=== PATIENT | female | born 1970 | race Caucasian/White ===

== ENCOUNTER → 2016-10-21 | Outpatient (CLI) | payer OTHER ==
--- NOTE | 2016-10-21 10:31 | MM ---
Reason for exam: clinical finding. Last mammogram was performed 1 year and 8 months ago. History: Family history of breast cancer in maternal cousin and breast cancer in maternal aunt. Took progesterone for 6 months beginning at age 29. Physical Findings: Nurse did not find any significant physical abnormalities on exam. MG Diagnostic Mammo w CAD YURI Bilateral CC and MLO view(s) were taken. Prior study comparison: February 20, 2015, bilateral MG 3d diag mammo w/cad YURI. October 05, 2013, bilateral MG work up mamm w CAD BILAT. Finding: There is a 3.3 mm equal density (isodense) mass in the lateral right breast. New finding since February 20, 2015 and October 05, 2013. ASSESSMENT: Incomplete: need additional imaging evaluation, BI-RAD 0 RECOMMENDATION: Ultrasound of the right breast. (7-10 o'clock, 5cm from the nipple)
--- NOTE | 2016-10-21 10:43 | USB ---
Reason for exam: additional evaluation requested from abnormal screening. History: Family history of breast cancer in maternal cousin and breast cancer in maternal aunt. Took progesterone for 6 months beginning at age 29. US Breast Limited RT Right breast ultrasound demonstrates a 0.8 x 0.4 x 0.6cm oval, cystic cluster at 7 o'clock and a 0.5 x 0.3 x 0.5cm oval, solid node at 9 o'clock. These results were verbally communicated with the patient and result sheet given to the patient on 10/21/16. ASSESSMENT: Probably benign, BI-RAD 3 RECOMMENDATION: Follow-up diagnostic mammogram of the right breast in 6 months.
== END ==
LOC: RADMAMWWP 07:04
PROVIDERS: ATTEND Family Medicine
DX: N64.52 Nipple discharge (principal); R92.8 Other abnormal and inconclusive findings on diagnostic imaging of breast
CPT/HCPCS: 76642; G0204

== ENCOUNTER → 2017-01-14 | Outpatient (CLI) | payer OTHER ==
--- NOTE | 2017-01-14 10:48 | FL ---
EXAMINATION TYPE: FL UGI air w esophagus DATE OF EXAM: 01/14/2017 COMPARISON: NONE HISTORY: 46-year-old female dysphasia, difficulty swallowing and complains of goiter. Total fluoroscopy time: 1 minute 30 seconds. Total images: 35. FINDINGS: The swallowing mechanism is normal and hypopharyngeal anatomy is preserved. The cervical and thoracic portions have a normal course and caliber and normal motility. The mucosa is normal and no persistent filling defect is encountered. There is a small sliding hiatal hernia demonstrated. Both Valsalva and positional maneuvers failed to elicit gastroesophageal reflux. The stomach and duodenum are free of any persistent filling defect and demonstrate a normal mucosal p attern. IMPRESSION: 1. Small sliding hiatal hernia. 2. Otherwise, unremarkable esophagram and upper GI examination.
== END | disposition home or self-care (01) ==
LOC: RADFLWHC 08:45
PROVIDERS: ATTEND Family Medicine
DX: K44.9 Diaphragmatic hernia without obstruction or gangrene (principal); R13.10 Dysphagia, unspecified
CPT/HCPCS: 74246

== ENCOUNTER → 2017-04-24 | Outpatient (CLI) | payer OTHER ==
--- NOTE | 2017-04-24 11:47 | MM ---
Reason for exam: follow-up at short interval from prior study. Last mammogram was performed 6 months ago. History: Family history of breast cancer in maternal cousin and breast cancer in maternal aunt. Took progesterone for 6 months beginning at age 29. Physical Findings: Nurse Summary: There is a 1 x 1 area of prominent tissue at 9 o'clock in the right breast (nurse ts). MG 3D Diag Mammo W/Cad RT CC and MLO view(s) were taken of the right breast. Prior study comparison: October 21, 2016, bilateral MG diagnostic mammo w CAD YURI. September 22, 2013, bilateral MG screening mammo w CAD. The breast tissue is heterogeneously dense. This may lower the sensitivity of mammography. No significant new findings when compared with previous films. These results were verbally communicated with the patient and result sheet given to the patient on 04/24/17. ASSESSMENT: Benign, BI-RAD 2 RECOMMENDATION: Routine screening mammogram of both breasts in 6 months. Back on schedule, October 2017.
== END | disposition home or self-care (01) ==
LOC: RADMAMWWP 10:27
PROVIDERS: ATTEND Family Medicine
DX: R92.8 Other abnormal and inconclusive findings on diagnostic imaging of breast (principal)
CPT/HCPCS: 77065; G0279

== ENCOUNTER → 2018-03-22 | Outpatient (CLI) | payer MEDICAID ==
--- NOTE | 2018-03-23 10:39 | MM ---
Reason for exam: screening (asymptomatic). Last mammogram was performed 11 months ago. History: Family history of breast cancer in maternal cousin and breast cancer in maternal aunt. Took progesterone for 6 months beginning at age 29. Physical Findings: A clinical breast exam by your physician is recommended on an annual basis and results should be correlated with mammographic findings. MG 3D Screening Mammo W/Cad Bilateral CC and MLO view(s) were taken. XCCL view(s) were taken of the left breast. Prior study comparison: April 24, 2017, right breast MG 3d diag mammo w/cad RT. October 21, 2016, bilateral MG diagnostic mammo w CAD YURI. The breast tissue is heterogeneously dense. This may lower the sensitivity of mammography. There is a oval, circumscribed, stable right upper outer quadrant mass back to 2013. No suspicious abnormality. No significant changes when compared with prior studies. ASSESSMENT: Benign, BI-RAD 2 RECOMMENDATION: Routine screening mammogram of both breasts in 1 year.
== END | disposition home or self-care (01) ==
LOC: RADMAMWWP 11:52
PROVIDERS: ATTEND Internal Medicine Geriatric Medicine
DX: Z12.31 Encounter for screening mammogram for malignant neoplasm of breast (principal)
CPT/HCPCS: 77063; 77067

== ENCOUNTER 2019-02-16 12:21 | Emergency (ER) | payer MEDICAID, OTHER ==
[2019-02-16 12:38] VITALS: BP 107/71; PULSE 73; RESP 18; TEMP 98.4
--- NOTE | 2019-02-16 13:44 | ED ---
Recheck HPI - General Chief Complaint: Needlestick/Exposure Stated Complaint: Needle stick-[facility] Time Seen by Provider: 02/16/19 12:47 Source: patient Mode of arrival: ambulatory Limitations: no limitations - History of Present Illness Initial Comments: Patient is a 48-year-old female presenting with a needlestick injury that happened just prior to arrival. 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 Patient states she's squeezed her pinky and a little bit of blood came out to she decided coming to the ER. Patient was able to get blood from the source of the needle stick. Patient has no other pertinent past medical history. Patient has no other complaints at this time. Upon arrival to ER, vital signs are stable. - Related Data Allergies Allergy/AdvReac Type Severity Reaction Status Date / Time No Known Allergies Allergy Verified 02/16/19 12:38 Review of Systems ROS Statement: Those systems with pertinent positive or pertinent negative responses have been documented in the HPI. ROS Other: All systems not noted in ROS Statement are negative. Past Medical History Past Medical History: No Reported History History of Any Multi-Drug Resistant Organisms: None Reported Past Surgical History: Section Past Psychological History: No Psychological Hx Reported Smoking Status: Never smoker Past Alcohol Use History: Rare Past Drug Use History: None Reported General Exam - General Exam Comments Initial Comments: GENERAL: Well-appearing, well-nourished and in no acute distress. HEAD: Atraumatic, normocephalic. EYES: Pupils equal round and reactive to light, extraocular movements intact, sclera anicteric, conjunctiva are normal. ENT: Moist mucous membranes. NECK: Normal range of motion, supple without lymphadenopathy or JVD. LUNGS: Breath sounds clear to auscultation bilaterally and equal. No wheezes rales or rhonchi. HEART: Regular rate and rhythm without murmurs, rubs or gallops. EXTREMITIES: Normal range of motion, no pitting or edema. No clubbing or cyanosis. NEUROLOGICAL: Cranial nerves II through XII grossly intact. Normal speech, normal gait. PSYCH: Normal mood, normal affect. SKIN: Warm, Dry, normal turgor, no rashes. Patient has a very superficial abrasion of the skin of the left palmar aspect of the left pinky finger. No active bleeding at this time. Limitations: no limitations Course Vital Signs 02/16/19 12:34 Temperature 98.4 F Pulse Rate 73 Respiratory 18 Rate Blood Pressure 107/71 O2 Sat by Pulse 100 Oximetry Medical Decision Making - Medical Decision Making Patient is a 48-year-old female here for needlestick injury to her left pinky finger. The source was identified and a rapid HIV testing is negative at this time. Patient declines HIV prophylactic treatment at this time. Patient's blood was drawn today. Patient is stable for discharge at this time. Patient will follow up with her PCP. Case discussed with Dr. Dooley. Disposition Clinical Impression: Needle stick injury of finger of left hand Disposition: HOME SELF-CARE Condition: Stable Instructions (If sedation given, give patient instructions): Needle Stick Injuries (ED) Additional Instructions: Please return to the Emergency Department if symptoms worsen or any other concerns. Is patient prescribed a controlled substance at d/c from ED?: No Referrals: Karlo Hernandez MD [Primary Care Provider] - 1-2 days
[2019-02-16 19:38] LABS: Hepatitis B Surface AB- Quant 35.6 mIU/mL; Hepatitis B Surface Antibody Reactive (Non-Reactive); Hepatitis C IgG Antibody Non-Reactive (Non-Reactive)
[2019-02-16 20:07] LABS: HIV 1 AB Non-Reactive (Non-Reactive); HIV 2 AB Non-Reactive (Non-Reactive); HIV AB P24 Non-Reactive (Non-Reactive); HIV P24 AG Non-Reactive (Non-Reactive)
== END 2019-02-16 13:53 | disposition home or self-care (01) ==
LOC: EC 12:21
DX: S60.417A Abrasion of left little finger, initial encounter (principal); Z77.21 Contact with and (suspected) exposure to potentially hazardous body fluids; W46.1XXA Contact with contaminated hypodermic needle, initial encounter; Y93.89 Activity, other specified; Y92.129 Unspecified place in nursing home as the place of occurrence of the external cause; Y99.0 Civilian activity done for income or pay
CPT/HCPCS: 36415; 86706; 86803; 87390; 99283

== ENCOUNTER → 2020-05-15 | Outpatient (CLI) | payer OTHER ==
--- NOTE | 2020-05-15 15:51 | XR ---
EXAMINATION TYPE: XR forearm RT, XR wrist complete RT DATE OF EXAM: 05/15/2020 CLINICAL HISTORY: Fall injury with pain. TECHNIQUE: Two views of the right forearm are obtained. 4 views right wrist. COMPARISON: None. FINDINGS: There is no acute fracture or dislocation seen in the right radius or ulna. The right elbow joint appears within normal limits. The overlying soft tissue appears within normal limits. Images of right breast show no acute fracture or dislocation. The carpal joint spaces are maintained. Overlying soft tissues are unremarkable. IMPRESSION: There is no acute fracture or dislocation seen in the right forearm or wrist.
--- NOTE | 2020-05-15 15:52 | XR ---
EXAMINATION TYPE: XR knee complete LT DATE OF EXAM: 05/15/2020 CLINICAL HISTORY: Fall injury with pain. TECHNIQUE: Three views of the left knee are obtained. COMPARISON: None. FINDINGS: There is no acute fracture/dislocation evident in left knee. Mild to moderate tricompartme nt joint space loss greatest medial tibiofemoral compartment. No significant spurring. The overlying soft tissue appears unremarkable. IMPRESSION: There is no acute fracture or dislocation in the left knee.
--- NOTE | 2020-05-15 15:53 | XR ---
Cervical spine HISTORY: Trauma and pain 5 views of the cervical spine Loss of normal cervical lordosis could be due to muscle spasm. Cervical vertebral bodies show preserv ed height, alignment, and bone mineralization. Disc spaces and prevertebral soft tissues are normal. There are facet arthropathy changes. No significant foraminal encroachment. IMPRESSION: No acute fracture or subluxation.
--- NOTE | 2020-05-15 15:53 | XR ---
EXAMINATION TYPE: XR lumbar spine 2 or 3V DATE OF EXAM: 05/15/2020 CLINICAL HISTORY: Fall injury with pain. TECHNIQUE: Frontal and lateral images of the lumbar spine are obtained. COMPARISON: None FINDINGS: There are 5 lumbar type vertebral bodies identified. There is slight grade 1 anterolisthes is L5 on S1. Mild to moderate disc space narrowing at this level. Vertebral body heights are maintain ed. No acute fracture is seen. Facet arthropathy lower lumbar spine noted. Overlying soft tissue unre markable. IMPRESSION: As above.
== END | disposition home or self-care (01) ==
LOC: RADXRMAIN 15:05
PROVIDERS: ATTEND Emergency Medicine
DX: M48.07 Spinal stenosis, lumbosacral region (principal); M43.17 Spondylolisthesis, lumbosacral region; M47.816 Spondylosis without myelopathy or radiculopathy, lumbar region; S13.4XXA Sprain of ligaments of cervical spine, initial encounter; S50.10XA Contusion of unspecified forearm, initial encounter; S63.501A Unspecified sprain of right wrist, initial encounter; S80.02XA Contusion of left knee, initial encounter
CPT/HCPCS: 72050; 72100

== ENCOUNTER → 2020-05-22 | Outpatient (CLI) | payer OTHER ==
--- NOTE | 2020-05-22 17:18 | XR ---
EXAMINATION TYPE: XR wrist complete RT DATE OF EXAM: 05/22/2020 COMPARISON: 05/15/2020 HISTORY: Fall. Pain. TECHNIQUE: 4 views FINDINGS: Carpal bones are intact. I see no fracture nor dislocation. Joint spaces are fairly normal. IMPRESSION: Negative right wrist exam. No change.
== END | disposition home or self-care (01) ==
LOC: RADXRMAIN 16:26
PROVIDERS: ATTEND Emergency Medicine
DX: S63.501D Unspecified sprain of right wrist, subsequent encounter (principal); M25.531 Pain in right wrist

== ENCOUNTER 2020-09-12 15:15 | Emergency (ER) | payer MEDICAID, OTHER ==
[2020-09-12 15:28] VITALS: BP 124/79; PULSE 60; RESP 18; TEMP 98.2
[2020-09-12] MEDS ORDERED: DIPH,PERTUS(ACELL)TETVAC-LF 0.5 ML VIAL IM ONE (15:41)
--- NOTE | 2020-09-12 15:56 | ED ---
Wound/Laceration HPI - General Chief Complaint: Wound/Laceration Stated Complaint: hand injury Time Seen by Provider: 09/12/20 15:32 Source: patient Mode of arrival: ambulatory Limitations: no limitations - History of Present Illness Initial Comments: 49-year-old female presents to the emergency department a chief complaint of a laceration to the hand. Patient reports this occurred about one hour prior to arrival when she was using a clean knife which extends that caused a laceration on the dorsal aspect of the left thumb inferior to the interphalangeal joint. She states she has an abnormal burning sensation but is not necessarily painful. States she has limited range of motion with flexion and extension of the distal phalanx left of the thumb. She denies taking medications for the symptoms. Tetanus is not up-to-date. - Related Data Previous Rx's Medication Instructions Recorded Cephalexin [Keflex] 500 mg PO TID 1 Days #9 cap 09/12/20 Allergies Allergy/AdvReac Type Severity Reaction Status Date / Time No Known Allergies Allergy Verified 09/12/20 15:23 Review of Systems ROS Statement: Those systems with pertinent positive or pertinent negative responses have been documented in the HPI. ROS Other: All systems not noted in ROS Statement are negative. Past Medical History Past Medical History: No Reported History History of Any Multi-Drug Resistant Organisms: None Reported Past Surgical History: Section Past Psychological History: Anxiety Smoking Status: Never smoker Past Alcohol Use History: Occasional Past Drug Use History: None Reported General Exam Limitations: no limitations General appearance: alert, in no apparent distress, obese Head exam: Present: atraumatic, normocephalic, normal inspection Eye exam: Present: normal appearance, PERRL, EOMI Pupils: Present: normal accommodation ENT exam: Present: normal exam, normal oropharynx, mucous membranes moist Neck exam: Present: normal inspection, full ROM. Absent: tenderness Respiratory exam: Present: normal lung sounds bilaterally. Absent: respiratory distress Cardiovascular Exam: Present: regular rate, normal rhythm, normal heart sounds. Absent: systolic murmur Extremities exam: Present: tenderness (Mild tenderness at the injury site), normal capillary refill. Absent: normal inspection (Small puncture wound measuring approximately 5 mm on the dorsal aspect of the left thumb just slightly inferior to the interphalangeal joint.), full ROM (Limited range of motion of the distal phalanx of the left thumb with flexion and extension), pedal edema, joint swelling, calf tenderness Back exam: Present: normal inspection, full ROM. Absent: tenderness, CVA tenderness (R), CVA tenderness (L), muscle spasm, paraspinal tenderness, vertebral tenderness Neurological exam: Present: alert, oriented X3 Psychiatric exam: Present: normal affect, normal mood Skin exam: Present: warm, dry, intact, normal color Course Vital Signs 09/12/20 15:24 Temperature 98.2 F Pulse Rate 60 Respiratory 18 Rate Blood Pressure 124/79 O2 Sat by Pulse 99 Oximetry Medical Decision Making - Medical Decision Making 49-year-old female presents to the emergency department with a chief complaint of a puncture wound. On physical examination, patient has full sensation in the thumb but she has limited range of motion of the distal phalanx of the left thumb and flexion and extension. Potential tendinous injury. Her tetanus was updated. Tube gauze was applied over the injured site. There was no scaphoid tenderness. She is otherwise neurovascularly intact with normal capillary Refill and sensation. I also give her a short course of antibiotics advised to follow-up with security services specialist in order to obtain further imaging. Return parameters were thoroughly discussed with patient is an attending agreeable. Case discussed with Dr. Myron Alonzo Clinical Impression: Puncture wound of finger Disposition: HOME SELF-CARE Condition: Stable Instructions (If sedation given, give patient instructions): Puncture Wound (DC) Additional Instructions: Take prescribed medication as directed. Follow-up with orthopedics. Return to emergency department if symptoms worsen. Prescriptions: Cephalexin [Keflex] 500 mg PO TID 1 Days #9 cap Is patient prescribed a controlled substance at d/c from ED?: No Referrals: Karlo Hernandez MD [Primary Care Provider] - 1-2 days Justin Alcala DO [Doctor of Osteopathic Medicine] - 1-2 days Time of Disposition: 15:56
== END 2020-09-12 16:02 | disposition home or self-care (01) ==
LOC: EC 15:15
DX: S61.032A Puncture wound without foreign body of left thumb without damage to nail, initial encounter (principal); F41.9 Anxiety disorder, unspecified; W26.0XXA Contact with knife, initial encounter
CPT/HCPCS: 90471; 90715; 99283

== ENCOUNTER → 2020-10-12 | Outpatient (CLI) | payer MEDICAID ==
--- NOTE | 2020-10-16 11:16 | MM ---
Reason for exam: screening (asymptomatic). Last mammogram was performed 2 years and 7 months ago. History: Family history of breast cancer in maternal cousin and breast cancer in maternal aunt. Took progesterone for 6 months beginning at age 29. Physical Findings: A clinical breast exam by your physician is recommended on an annual basis and results should be correlated with mammographic findings. MG 3D Screening Mammo W/Cad Bilateral CC and MLO view(s) were taken. Prior study comparison: March 22, 2018, bilateral MG 3d screening mammo w/cad. April 24, 2017, right breast MG 3d diag mammo w/cad RT. The breast tissue is heterogeneously dense. This may lower the sensitivity of mammography. Focal asymmetry upper outer right breast zone C. This finding is changed when compared with previous exams. ASSESSMENT: Incomplete: need additional imaging evaluation, BI-RAD 0 RECOMMENDATION: Special view mammogram of the right breast. If lesion persists on supplemental views, image directed ultrasound is recommended. [facility] will attempt to contact patient to return for supplemental views and ultrasound if indicated.
== END | disposition home or self-care (01) ==
LOC: RADMAMWWP 13:09
PROVIDERS: ATTEND Family Medicine
DX: Z12.31 Encounter for screening mammogram for malignant neoplasm of breast (principal); Z80.3 Family history of malignant neoplasm of breast
CPT/HCPCS: 77063; 77067

== ENCOUNTER → 2020-10-17 | Outpatient (CLI) | payer MEDICAID ==
--- NOTE | 2020-10-18 09:04 | MM ---
Reason for exam: additional evaluation requested from abnormal screening. Last mammogram was performed less than 1 month ago. History: Family history of breast cancer in maternal cousin and breast cancer in maternal aunt. Took progesterone for 6 months beginning at age 29. Physical Findings: Nurse did not find any significant physical abnormalities on exam. MG 3D Work Up W/Cad RT Spot compression CC, spot compression MLO, and LM view(s) were taken of the right breast. Prior study comparison: October 12, 2020, bilateral MG 3d screening mammo w/cad. March 22, 2018, bilateral MG 3d screening mammo w/cad. The breast tissue is heterogeneously dense. This may lower the sensitivity of mammography. Asymmetry not reproduced. These results were verbally communicated with the patient and result sheet given to the patient on 10/17/20. ASSESSMENT: Negative, BI-RAD 1 RECOMMENDATION: Return to routine screening mammogram schedule for both breasts.
== END | disposition home or self-care (01) ==
LOC: RADMAMWWP 14:21
PROVIDERS: ATTEND Family Medicine
DX: R92.2 Inconclusive mammogram (principal); Z80.3 Family history of malignant neoplasm of breast
CPT/HCPCS: 77061; 77065

== ENCOUNTER 2020-11-13 08:07 | Day surgery (SDC) | payer MEDICAID, OTHER ==
[2020-11-12 10:30] VITALS: BMI 31.1
[~2020-11-13 08:07] MED LIST: LIDOCAINE 1% (10MG/ML) FOR IV START INTRADERMA PRN
[2020-11-13] MEDS: LACTATED RINGERS 1,000 ML IV SCH ×2 (08:25→08:40)
[2020-11-13 08:46] VITALS: TEMP 98.4
[2020-11-13] MEDS ORDERED: PROPOFOL 10 MG/ML 20 ML VIAL IV ONE (08:48)
--- NOTE | 2020-11-13 08:52 | P.GSHP ---
History of Present Illness H&P Date: 11/13/20 Chief Complaint: Colon cancer screening 50-year-old female here today for colonoscopy. She has not had 1 previously. No bowel related complaints. Her sister has had annual colonoscopies for the last 5-10 years. She is not sure why. Denies family history of colon cancer. Past Medical History Past Medical History: No Reported History Additional Past Medical History / Comment(s): CHANGES IN BOWEL HABITS. HAS SLIDING HIATAL HERNIA History of Any Multi-Drug Resistant Organisms: None Reported Past Surgical History: Section Additional Past Surgical History / Comment(s): C-SEC X 3. HYSTERECOPY X 2 Additional Past Anesthesia/Blood Transfusion Reaction / Comment(s): SLOW TO COME OUT OF ANESTHESIA Smoking Status: Former smoker - Past Family History Mother Family Medical History: No Reported History Medications and Allergies Home Medications Medication Instructions Recorded Confirmed Type No Known Home Medications 11/12/20 11/12/20 History Allergies Allergy/AdvReac Type Severity Reaction Status Date / Time No Known Allergies Allergy Verified 11/12/20 10:17 Surgical - Exam Vital Signs Temp Pulse Resp BP Pulse Ox 98.4 F 55 L 16 126/68 99 11/13/20 08:44 11/13/20 08:44 11/13/20 08:44 11/13/20 08:44 11/13/20 08:44 Physical exam: General: Well-developed, well-nourished HEENT: Normocephalic, sclerae nonicteric Abdomen: Nontender, nondistended Extremities: No edema Neuro: Alert and oriented Assessment and Plan (1) Colon cancer screening Narrative/Plan: Will proceed with colonoscopy Current Visit: Yes Status: Acute Code(s): Z12.11 - ENCOUNTER FOR SCREENING FOR MALIGNANT NEOPLASM OF COLON SNOMED Code(s): 581036342
--- NOTE | 2020-11-13 09:08 | P.PCN ---
Procedure(s) Performed: PREOPERATIVE DIAGNOSIS: Colon cancer screening POSTOPERATIVE DIAGNOSIS: Normal exam PROCEDURE: Colonoscopy ANESTHESIA: MAC SURGEON: Vicente Humphries M.D. SPECIMENS: None ENDOSCOPIC PROCEDURE: The patient was placed on the endoscopy table in the left decubitus position. The Olympus colonoscope was inserted into the anus and passed under direct visualization to the base of the cecum. The appendiceal orifice was visualized. From that point the scope was slowly withdrawn inspecting all surfaces carefully. There were no neoplastic inflammatory or polypoid lesions throughout the cecum, ascending, transverse, descending, sigmoid and rectum. There was no visible diverticulosis noted. Digital rectal examination was normal. The patient was taken to the recovery room in stable condition per anesthesia guidelines. RECOMMENDATIONS: Resume diet. Follow colonoscopy in 5-10 years depending on the patient's sisters clinical history
[2020-11-13 09:36] VITALS: BP 126/84; PULSE 50; RESP 18
== END 2020-11-13 09:56 | disposition home or self-care (01) ==
LOC: ORWHC2ENDO 08:07
PROVIDERS: ATTEND Surgery
DX: Z12.11 Encounter for screening for malignant neoplasm of colon (principal); K44.9 Diaphragmatic hernia without obstruction or gangrene; Z87.891 Personal history of nicotine dependence; Z98.891 History of uterine scar from previous surgery; Z98.890 Other specified postprocedural states
CPT/HCPCS: 81025; J2704; G0121

== ENCOUNTER → 2021-10-29 | Outpatient (CLI) | payer MEDICAID ==
--- NOTE | 2021-10-29 11:34 | MM ---
Reason for Exam: Screening (asymptomatic). Last screening mammogram was performed 12 month(s) ago. Patient History: Menarche at age 10. First Full-Term at age 29. Late child-bearing (after 30). Progesterone for 6 months from age 29 until age 29. Maternal cousin had breast cancer. Maternal aunt had breast cancer. Maternal aunt had breast cancer at or over age 50. Last menstrual period: 10/24/2021 Risk Values: Sarah 5 year model risk: 1.6%. NCI Lifetime model risk: 12.8%. Prior Study Comparison: 03/22/2018 Bilateral Screening Mammogram, [facility]. 10/12/2020 Bilateral Screening Mammogram, [facility]. 10/17/2020 Right Diagnostic Mammogram, [facility]. Tissue Density: The breast tissue is heterogeneously dense. This may lower the sensitivity of mammography. Findings: Analyzed By CAD. More prominent focal asymmetry within the right upper outer breast. There is no suspicious group of microcalcifications. Overall Assessment: Incomplete: need additional imaging evaluation, BI-RAD 0 Management: Diagnostic Mammogram of the right breast. A clinical breast exam by your physician is recommended on an annual basis and results should be correlated with mammographic findings. [facility] will attempt to contact patient to return for supplemental views and ultrasound if indicated. Electronically signed and approved by: Jude Rubio D.O.
== END | disposition home or self-care (01) ==
LOC: RADMAMWWP 07:31
PROVIDERS: ATTEND Family Medicine
DX: Z12.31 Encounter for screening mammogram for malignant neoplasm of breast (principal); Z80.3 Family history of malignant neoplasm of breast
CPT/HCPCS: 77063; 77067

== ENCOUNTER → 2021-11-13 | Outpatient (CLI) | payer MEDICAID ==
--- NOTE | 2021-11-13 14:32 | MM ---
Reason for Exam: Follow-up at short interval from prior study. Last screening mammogram was performed less than 1 month ago. Patient History: Menarche at age 10. First Full-Term at age 29. Late child-bearing (after 30). Postmenopausal. Progesterone for 6 months from age 29 until age 29. Maternal cousin had breast cancer. Maternal aunt had breast cancer. Maternal aunt had breast cancer at or over age 50. Risk Values: Sarah 5 year model risk: 1.6%. NCI Lifetime model risk: 12.8%. Tissue Density: Right: The breast tissue is heterogeneously dense. This may lower the sensitivity of mammography. Findings: Analyzed By CAD. Pattern appears stable. Persistent suspicious spiculated or lobular masses are not evident. There is stable chronic nodularity present. Overall Assessment: Probably benign, BI-RAD 3 Management: Diagnostic Mammogram of the right breast in 6 months. A clinical breast exam by your physician is recommended on an annual basis and results should be correlated with mammographic findings. This exam should not preclude additional follow-up of suspicious palpable abnormalities. Results were given to the patient verbally at the time of exam. Electronically signed and approved by: Shda Wang D.O. Radiologis
== END | disposition home or self-care (01) ==
LOC: RADMAMWWP 13:53
PROVIDERS: ATTEND Family Medicine
DX: R92.8 Other abnormal and inconclusive findings on diagnostic imaging of breast (principal); Z78.0 Asymptomatic menopausal state; Z80.3 Family history of malignant neoplasm of breast
CPT/HCPCS: 77061; 77065

== ENCOUNTER → 2022-02-05 | Outpatient (CLI) | payer MEDICAID ==
--- NOTE | 2022-02-05 15:41 | FL ---
EXAMINATION TYPE: FL arthrogram shoulder LT fluoroscopic-guided arthrogram injection. DATE OF EXAM: 02/05/2022 HISTORY: M25.512 PAIN IN LEFT SHOULDER,M25.60 STIFFNESS PROCEDURES: TECHNIQUE: The procedure, risks, and alternatives, were discussed with the patient, who requested that octavio ceron The consent form was signed, and teach-back occurred. The site/side of the procedure was marked with a line with participation by the patient. The accompan melany paperwork was verified for consistency. A directed history and physical exam was performed prior to the procedure. Medication reconciliation was performed by ancillary personnel. A critical pause was performed with assisting personnel just pr ior to the procedure, and the patient's identity was confirmed using 2 identifiers. Imaging guidance was utilized to select the precise skin entry point just prior to the procedure. The patient was prepped and draped in the usual sterile fashion and local 1% lidocaine anesthesia was instilled. Under fluoroscopic guidance, a 22 gauge spinal needle was introduced into the left gleno humeral joint. Appropriate needle tip position was confirmed after a small amount of contrast injecti on. Approximately 10 ml of a mixture of Omnipaque 240 iodinated contrast and gadolinium was injected into the glenohumeral joint. The needle was then removed. The patient tolerated the procedure well. A post-procedure note was placed into the medical record. There was no immediate complication. After the procedure, the patient's condition was unchanged. Estimated blood loss was minimal. IMPRESSION: Technically successful left shoulder arthrogram injection for MRI. No immediate complication.
--- NOTE | 2022-02-06 03:36 | MR ---
EXAMINATION TYPE: MR shoulder LT w con DATE OF EXAM: 02/05/2022 COMPARISON: None HISTORY: PAIN IN LEFT SHOULDER, STIFFNESS CONTRAST: Standard multiplanar, multisequence MRI departmental protocol images were obtained without contrast a nd with 10 mL intravenous Gadavist gadolinium contrast. The biceps tendon is intact. The glenoid devante appear intact. There is some contrast material in the subdeltoid bursa. The supraspinatus tendon appears to show small tear near the attachment on the grea ter tuberosity. There is some spurring at the AC joint and mild impingement on the supraspinatus musc le. The subscapularis tendon is intact. The infraspinatus tendon is intact. No evidence of a fracture. No focal bone destruction. IMPRESSION: There is small amount of contrast leakage into the subdeltoid bursa and consistent with a small full- thickness tear of the supraspinatus tendon. No retraction. There is spurring at the AC joint and mild subacromial impingement.
== END | disposition home or self-care (01) ==
LOC: RADFLMAIN 12:50
PROVIDERS: ATTEND Family Medicine
DX: M25.512 Pain in left shoulder (principal); M25.60 Stiffness of unspecified joint, not elsewhere classified
CPT/HCPCS: 23350; 73040; 73222; J2001; A9585; Q9967

== ENCOUNTER → 2022-12-19 | Outpatient (CLI) | payer MEDICAID ==
--- NOTE | 2022-12-22 09:47 | MM ---
Reason for Exam: Screening (asymptomatic). Last mammogram was performed 1 year(s) and 2 month(s) ago. Patient History: Menarche at age 10. First Full-Term at age 29. Late child-bearing (after 29). Postmenopausal. Progesterone for 6 months from age 29 until age 29. Maternal cousin had breast cancer. Maternal aunt had breast cancer. Maternal aunt had breast cancer at or over age 50. Maternal aunt had breast cancer, age 64. Risk Values: Sarah 5 year model risk: 1.7%. NCI Lifetime model risk: 12.6%. Prior Study Comparison: 10/29/2021 Bilateral MG 3D screening mammo w/cad, [facility]. 11/13/2021 Right MG 3D work up w/cad RT, [facility]. 06/12/2022 Right MG 3D diag mammo w/cad RT, [facility]. Tissue Density: The breast tissue is heterogeneously dense. This may lower the sensitivity of mammography. Findings: Analyzed By CAD. There is no suspicious group of microcalcifications or new suspicious mass. Overall Assessment: Negative, BI-RAD 1 Management: Screening Mammogram of both breasts in [address] [facility] will attempt to contact patient to return for supplemental views and ultrasound if indicated. Patient should continue monthly self-breast exams. A clinical breast exam by your physician is recommended on an annual basis. This exam should not preclude additional follow-up of suspicious palpable abnormalities. Note on Sarah scores and lifetime risk: 1. A Sarah score greater than 3% is considered moderate risk. If this is the case, consider specialist referral to assess eligibility for a risk reducing agent. 2. If overall lifetime risk for the development of breast cancer is 20% or higher, the patient may qualify for future screening with alternating mammogram and breast MRI. Electronically signed and approved by: Jose F Diallo DO
== END | disposition home or self-care (01) ==
LOC: RADMAMWWP 09:16
PROVIDERS: ATTEND Family Medicine
DX: Z12.31 Encounter for screening mammogram for malignant neoplasm of breast (principal); Z80.3 Family history of malignant neoplasm of breast; Z78.0 Asymptomatic menopausal state
CPT/HCPCS: 77063; 77067

== ENCOUNTER → 2023-03-24 | Outpatient (CLI) | payer MEDICAID ==
--- NOTE | 2023-03-24 17:41 | BD ---
EXAMINATION TYPE: Axial Bone Density DATE OF EXAM: 03/24/2023 CLINICAL HISTORY: 52 years old Female. ICD-10 CODE: N95.1,M81.0 AGE-RELATED OSTEOPOROSIS W/O CURRENT P Height: 62 Weight: 137.3 FRAX RISK QUESTIONS: Alcohol (3 or more units per day): no Family History (Parent hip fracture): yes Glucocorticoids (More than 3mos): no (Ex: prednisone, prednisolone, methylprednisolone, dexamethasone, and hydrocortisone). History of Fracture in Adulthood: no Secondary Osteoporosis: 1. Type 1 Diabetes: no 2. Hyperthyroidism: yes 3. Menopause before 45: no 4. Malnutrition: no 5. Chronic liver disease: no Rheumatoid Arthritis: no Current Tobacco Use: no RISK FACTORS HISTORY OF: Surgery to Spine/Hip(right/left)/Wrist (right/left): no Additional History: EXAM MEASUREMENTS: Bone mineral densitometry was performed using the [employer] System. Bone mineral density as measured about the Lumbar spine is: ----- L1-L4(G/cm2): 1.470 T Score Values are as follows: ----- L1: 1.7 ----- L2: 1.9 ----- L3: 2.7 ----- L4: 3.0 ----- L1-L4: 2.4 Z Score Values are as follows: ----- L1: 2.4 ----- L2: 2.6 ----- L3: 3.5 ----- L4: 3.7 ----- L1-L4: 3.2 Bone mineral density : baseline Bone mineral density about the R hip (g/cm2): 1.154 Bone mineral density about the L hip (g/cm2): 1.173 T Score values are as follows: -----R Neck: 0.4 -----L Neck: 0.2 -----R Total: 1.2 -----L Total: 1.3 Z Score values are as follows: -----R Neck: 1.4 -----L Neck: 1.2 -----R Total: 1.8 -----L Total: 2.0 Bone mineral density : baseline FRAX%s: The graph provided illustrates a 9.4% chance for a major osteoporotic fx and a 0.1% chance fo r the hips probability for fx in 10 years time. IMPRESSION: Normal (Values between +1 and -1 indicate normal bone mass). Consider repeating this study in 5 year s or sooner if there is some new clinical indication. NOTE: T-SCORE=SD OF THE YOUNG ADULT MEAN.
== END | disposition home or self-care (01) ==
LOC: RADBDWWP 10:14
PROVIDERS: ATTEND Family Medicine
DX: M81.0 Age-related osteoporosis without current pathological fracture (principal); N95.1 Menopausal and female climacteric states
CPT/HCPCS: 77080

== ENCOUNTER → 2023-05-20 | Outpatient (CLI) | payer MEDICAID ==
--- NOTE | 2023-05-20 09:25 | MR ---
EXAMINATION TYPE: MR lumbar spine wo/w con DATE OF EXAM: 05/20/2023 8:13 AM CLINICAL INDICATION:Female, 52 years old with history of R94.131 ABNORMAL EMG R20.0 ANESTHESIA OF SKI N; Low back pain into left leg. COMPARISON: None TECHNIQUE: Multi planar, multi sequence imaging was performed utilizing: T1-weighted, T2-weighted, a nd turbo inversion recovery imaging of the lumbar spine. IV Contrast: 6.5 cc Gadavist. (None if empty) FINDINGS: Alignment: The lumbar vertebral bodies have preserved heights and alignment. Cord: The conus medullaris and the distal spinal cord appear unremarkable with regards to their signa l intensity and morphology. Bones/Discs: Mild degeneration changes throughout the spine with osteophyte formation and facet joint arthropathy. Multilevel disc desiccation is present. T12-L1: No evidence of significant spinal canal stenosis or neural foraminal stenosis. L1-L2: No evidence of significant spinal canal stenosis or neural foraminal stenosis. L2-L3: No evidence of significant spinal canal stenosis or neural foraminal stenosis. L3-L4: No evidence of significant spinal canal stenosis or neural foraminal stenosis. L4-L5: Disc uncovering from grade 1 anterolisthesis and facet joint arthropathy with mild spinal david l stenosis and mild bilateral neural foraminal stenosis. L5-S1: The disc is rounded posterior morphology without significant spinal canal stenosis. Facet join t arthropathy with mild bilateral neural foraminal stenosis. No significant spinal canal or neural foraminal stenosis in the remainder of the visualized levels. Other findings: Perineural cyst projects over the S2-S3 spinal canal measuring 19 x 13 mm. IMPRESSION: Grade 1 anterolisthesis of L4 and L5 without significant spinal canal neural foraminal stenosis. No evidence for significant spinal canal or neural foraminal stenosis.
== END | disposition home or self-care (01) ==
LOC: RADMRIMAIN 06:54
PROVIDERS: ATTEND Family Medicine
DX: M43.16 Spondylolisthesis, lumbar region (principal); R20.0 Anesthesia of skin; R94.131 Abnormal electromyogram [EMG]
CPT/HCPCS: 72158; A9585

== ENCOUNTER → 2023-07-15 | Outpatient (CLI) | payer MEDICAID ==
--- NOTE | 2023-07-15 18:21 | MR ---
EXAMINATION TYPE: MR brain wo con DATE OF EXAM: 07/15/2023 5:09 PM CLINICAL INDICATION:Female, 52 years old with history of R41.89 OTH SYMPTOMS AND SIGNS W COGNITIVE FU NCTION; PHH, Brain fog and cognitive issues, memory loss, mother has vascular dementia. COMPARISON: None. TECHNIQUE: Multi planar, multi sequence imaging was performed through the brain including: T1, T2, In version recovery, Diffusion weighted imaging, and gradient echo imaging. No gadolinium was given. FINDINGS: The rizo-white junctions, ventricular system, basal cisterns appear unremarkable. Scattered foci of high T2 signal intensity are seen within the periventricular white matter. Midline structures show n o abnormality. Diffusion-weighted imaging shows no evidence of restricted diffusion. The susceptibili ty weighted images do not reveal any evidence for micro-hemorrhage. The bone marrow signal is within normal limits. Paranasal sinuses and mastoid air cells: No significant paranasal sinus disease. Visualized orbits: Orbital contents are intact. IMPRESSION: 1. No evidence of intracranial mass or acute/subacute infarct. 2. No significant white matter change or atrophy changes.
== END | disposition home or self-care (01) ==
LOC: RADMRIMAIN 16:06
PROVIDERS: ATTEND Family Medicine
DX: R41.89 Other symptoms and signs involving cognitive functions and awareness (principal)
CPT/HCPCS: 70551

== ENCOUNTER → 2023-12-22 | Outpatient (CLI) | payer MEDICAID ==
--- NOTE | 2023-12-24 10:34 | MM ---
Reason for Exam: Screening (asymptomatic). Last screening mammogram was performed 12 month(s) ago. Patient History: Menarche at age 10. First Full-Term at age 29. Late child-bearing (after 29). Postmenopausal. Progesterone for 6 months from age 29 until age 29. Maternal cousin had breast cancer. Maternal aunt had breast cancer. Maternal aunt had breast cancer at or over age 50. Maternal aunt had breast cancer, age 64. Risk Values: Sarah 5 year model risk: 1.7%. NCI Lifetime model risk: 12.4%. Prior Study Comparison: 11/13/2021 Right MG 3D work up w/cad RT, [facility]. 06/12/2022 Right MG 3D diag mammo w/cad RT, [facility]. 12/19/2022 Bilateral MG 3D screening mammo w/cad, [facility]. Tissue Density: The breasts are heterogeneously dense, which may obscure small masses. Findings: Analyzed By CAD. Right breast: There is no suspicious group of microcalcifications or new suspicious mass. Left breast: There is no suspicious group of microcalcifications or new suspicious mass. Overall Assessment: Negative, BI-RAD 1 Management: Screening Mammogram of both breasts in [address] [facility] will attempt to contact patient to return for supplemental views and ultrasound if indicated. Patient should continue monthly self-breast exams. A clinical breast exam by your physician is recommended on an annual basis. This exam should not preclude additional follow-up of suspicious palpable abnormalities. Note on Sarah scores and lifetime risk: 1. A Sarah score greater than 3% is considered moderate risk. If this is the case, consider specialist referral to assess eligibility for a risk reducing agent. 2. If overall lifetime risk for the development of breast cancer is 20% or higher, the patient may qualify for future screening with alternating mammogram and breast MRI. [facility], , 12/24/2023 10:24 AM. Electronically signed and approved by: Jose F Diallo DO
== END | disposition home or self-care (01) ==
LOC: RADMAMWWP 07:17
PROVIDERS: ATTEND Family Medicine
DX: Z12.31 Encounter for screening mammogram for malignant neoplasm of breast
CPT/HCPCS: 77063; 77067